=== PATIENT | male | born 1970 | race Caucasian/White ===

== ENCOUNTER 2017-07-05 19:48 | Emergency (ER) | payer SELFPAY ==
[~2017-07-05] VITALS: Ht 175.3 cm; Wt 81.5 kg
[~2017-07-05 19:48] MED LIST: DARV PO; Z.0.NO CURRENT MEDS
[2017-07-05 19:50] VITALS: BP 182/101; PULSE 82; RESP 16; TEMP 97.9; O2SAT 97
[2017-07-05] MEDS ORDERED: BP MED (20:25)
[2017-07-05] MEDS ORDERED: CYCL1TAB29 PO (21:33)
[2017-07-05] MEDS ORDERED: IBUP800T23 PO (21:33)
--- NOTE | 2017-07-05 21:33 | PD ---
HPI Chief Complaint: Musculoskeletal Complaint Time Seen by Provider: 21:13 Travel History International Travel<30 days: No Contact w/Intl Traveler<30days: No Traveled to known affect area: No History of Present Illness HPI Patient is a 46-year-old male presenting to emergency for evaluation of right arm pain. Patient states that he was attempting to lift his friend in order to "pop" his back last night and he felt his arm pop. Patient states that he had a sharp pain and it was swollen the time. He has been applying icy hot topically and has been using ice every couple of hours. He states the swelling has gone down and the pain is improved however he had to call out of work today. Patient states the pain is a 4 out of 10. He denies any weakness, numbness, tingling, decreased range of motion. PFSH Past Medical History Cardiovascular Problems: Yes (stent x1, HTN) Chest Pain: Yes Diminished Hearing: No Hypertension: Yes Tetanus Vaccination: < 5 Years Influenza Vaccination: No Past Surgical History Tonsillectomy: Yes Social History Alcohol Use: No Tobacco Use: No Substance Use: Yes (marijuana occaisonally) Allergies-Medications (Allergen,Severity, Reaction): Coded Allergies: No Known Allergies (Verified , 07/05/17) Reported Meds & Prescriptions Reported Meds & Active Scripts Active Reported [Bp Med] Review of Systems Except as stated in HPI: all other systems reviewed are Neg Musculoskeletal: Positive: Myalgias Physical Exam Narrative GENERAL: Well-developed, well-nourished, alert male. Resting comfortably in no acute distress. SKIN: Warm and dry. HEAD: Normocephalic. EYES: No scleral icterus. No injection or drainage. NECK: Supple, trachea midline. No JVD or lymphadenopathy. CARDIOVASCULAR: Regular rate and rhythm without murmurs, gallops, or rubs. RESPIRATORY: Breath sounds equal bilaterally. No accessory muscle use. GASTROINTESTINAL: Abdomen soft, non-tender, nondistended. MUSCULOSKELETAL: No cyanosis, or edema. Full range of motion in right elbow, no obvious deformities noted. 2+ radial pulse, brisk less than 3 second capillary refill. 5 out of 5 muscle strength in bilateral upper extremities. Biceps tendon appears intact. BACK: Nontender without obvious deformity. No CVA tenderness. Data Data Last Documented VS Vital Signs Date Time Temp Pulse Resp B/P (MAP) Pulse Ox O2 Delivery O2 Flow Rate FiO2 07/05/17 19:50 97.9 82 16 182/101 (128) 97 Room Air MDM Medical Decision Making Medical Screen Exam Complete: Yes Emergency Medical Condition: Yes Interpretation(s) Vital Signs Date Time Temp Pulse Resp B/P (MAP) Pulse Ox O2 Delivery O2 Flow Rate FiO2 07/05/17 19:50 97.9 82 16 182/101 (128) 97 Room Air Differential Diagnosis Ruptured tendon versus tendinitis versus muscle strain versus muscle spasm versus dislocation which is less unlikely Narrative Course Patient is a 46-year-old male that presented to emergency for evaluation of right antecubital fossa pain after lifting his friend last night. There is no obvious deformities, patient is neurovascularly intact. At this time patient will be encouraged to continue conservative management and she is already improving with ice and topical analgesics. He is encouraged to follow-up with a primary doctor or at the [facility]. He was encouraged to return to emergency department should there be any new or worsening symptoms. Patient verbalized understanding of instructions. Patient stable for discharge. Diagnosis Primary Impression: Muscle strain Referrals: [facility] Patient Instructions: General Instructions, Muscle Strain (ED) Departure Forms: Tests/Procedures, Work Release Enter return to work date: Jul 07, 2017 Additional Instructions: Follow-up with the [facility] Take medication as needed and as directed for pain Continue range of motion exercises, alternate heat and ice to affected area, avoid exacerbating activities. Return to emergency department for any new or worsening symptoms Med/Other Pt SpecificInfo: Prescription(s) given Scripts Cyclobenzaprine (Flexeril) 10 Mg Tab 10 MG PO TID Y for MUSCLE SPASM, #30 TAB 0 Refills Prov: Paula Brunner 07/05/17 Ibuprofen (Ibuprofen) 800 Mg Tab 800 MG PO Q6HR Y for PAIN, #40 TAB 0 Refills Prov: Paula Brunner 07/05/17 Disposition: 01 DISCHARGE HOME Condition: Stable Paula Brunner Jul 05, 2017 21:33
== END 2017-07-05 21:35 | disposition home or self-care (01) ==
LOC: NEPD 19:48
DX: S46.911A Strain of unspecified muscle, fascia and tendon at shoulder and upper arm level, right arm, initial encounter (principal); X50.0XXA Overexertion from strenuous movement or load, initial encounter; Y93.F2 Activity, caregiving, lifting
CPT/HCPCS: 99283